=== PATIENT | female | born 2000 | race Hispanic/Latino ===

== ENCOUNTER 2018-09-09 14:00 | Outpatient (CLI) | payer BC | END 2018-09-09 14:20 | disposition home or self-care (01) | LOC: LAB 14:00 → TRG 14:05 → LAB 14:05 → TRG 14:10 → LAB 14:20 | PROVIDERS: ATTEND Obstetrics & Gynecology | DX: O26.891 Other specified pregnancy related conditions, first trimester (principal); Z3A.08 8 weeks gestation of pregnancy; Z67.21 Type B blood, Rh negative | CPT/HCPCS: 86850; 86900; 86901; 96372; J2790 ==

== ENCOUNTER 2018-09-12 11:32 | Emergency (ER) | payer BC ==
[2018-09-12] MEDS ORDERED: ZOFRAN IM ONE (11:50)
--- NOTE | 2018-09-12 11:50 | Emergency Department Report ---
ED Female HPI - General Chief complaint: Vaginal Bleeding Stated complaint: 6WKS /HEAVY BLEEDING Time Seen by Provider: 09/12/18 11:43 Source: patient, RN notes reviewed, old records reviewed Mode of arrival: Ambulatory Limitations: No Limitations - History of Present Illness Initial comments: This is a 17-year-old female. This patient is not known to this provider previously. Patient is 1, para 0. Believes last menstrual period at the end of June. Following with lj by[facility] [employer] Patient reports onset of nontraumatic vaginal bleeding last week. She's had an extensive workup as an outpatient, where she reports that she is Rh-, has already received RhoGAM this week, had a quantitative hCG of approximately 4000 earlier on this week, and also had an outpatient ultrasound, which demonstrated a "sac." Her bleeding temporarily decreased, and over the past 36 hours has increased. It is associated with bilateral lower quadrant pain and lower back pain. The pain is sharp and aching and cramping, increases with palpation and decreases with rest. No irritative or obstructive urinary symptoms. Patient had a pelvic exam done earlier on this week, and indicates that "swabs were done." She came to the ER today because a family member works in this hospital in the NICU, and suggested that she may be having a miscarriage, and the patient is concerned that she may require a dilatation and curettage. Complaint: vaginal bleeding, vaginal discharge -: Gradual, days(s) Location: suprapubic, LLQ, RLQ Radiation: other (back) Severity: moderate Quality: cramping Consistency: intermittent Improves with: medication Worsens with: movement Are you Now?: Yes Associated Symptoms: vaginal bleeding, abdominal pain. denies: vaginal disc harge, nausea/vomiting, fever/chills, headaches, dysuria, hematuria, rash, seizure, shortness of breath, syncope, weakness - Related Data Previous Rx's Medication Instructions Recorded Last Taken Type Acetaminophen [Non-Aspirin Extra 500 mg PO Q6HR PRN #30 tablet 09/12/18 Unknown Rx Strength] Ibuprofen [Motrin] 600 mg PO Q8H PRN #30 tablet 09/12/18 Unknown Rx traMADol [Ultram 50 MG tab] 50 mg PO Q6HR PRN #9 tablet 09/12/18 Unknown Rx Allergies Allergy/AdvReac Type Severity Reaction Status Date / Time No Known Allergies Allergy Verified 07/19/15 01:39 ED Review of Systems ROS: Stated complaint: 6WKS /HEAVY BLEEDING Other details as noted in HPI Constitutional: denies: fever Eyes: denies: eye pain ENT: denies: epistaxis Respiratory: denies: cough Cardiovascular: denies: chest pain Gastrointestinal: abdominal pain. denies: vomiting Genitourinary: abnormal menses Musculoskeletal: back pain Skin: denies: lesions Neurological: weakness Psychiatric: anxiety ED Past Medical Hx - Past Medical History Previous Medical History?: Yes Hx Hypertension: No Hx Diabetes: No Hx Deep Vein Thrombosis: No Hx Renal Disease: No Hx Sickle Cell Disease: No Hx Seizures: No Hx Asthma: No Hx HIV: No Additional medical history: SYNCOPE - Surgical History Past Surgical History?: Yes Additional Surgical History: Sandoval tooth - Social History Smoking Status: Current Every Day Smoker Substance Use Type: Marijuana - Medications Home Medications: Home Medications Medication Instructions Recorded Confirmed Last Taken Type Acetaminophen [Non-Aspirin Extra 500 mg PO Q6HR PRN #30 tablet 09/12/18 Unknown Rx Strength] Ibuprofen [Motrin] 600 mg PO Q8H PRN #30 tablet 09/12/18 Unknown Rx traMADol [Ultram 50 MG tab] 50 mg PO Q6HR PRN #9 tablet 09/12/18 Unknown Rx ED Physical Exam - General Limitations: No Limitations General appearance: alert, anxious - Head Head exam: Present: atraumatic, normocephalic - Eye Eye exam: Present: normal appearance, EOMI. Absent: nystagmus - ENT ENT exam: Present: normal exam, normal orophraynx, mucous membranes moist, normal external ear exam - Neck Neck exam: Present: normal inspection, full ROM. Absent: tenderness, meningismus - Respiratory Respiratory exam: Present: normal lung sounds bilaterally. Absent: respiratory distress - Cardiovascular Cardiovascular Exam: Present: regular rate, normal rhythm, normal heart sounds. Absent: bradycardia, tachycardia, irregular rhythm, systolic murmur, diastolic murmur, rubs, gallop - GI/Abdominal GI/Abdominal exam: Present: soft, tenderness, other (there is mild lower abdominal tenderness. There is no rebound, guarding or peritoneal signs. There is no right upper quadrant tenderness. there is negative Rovsing sign.). Absent: distended, guarding, rebound, rigid, pulsatile mass - Extremities Exam Extremities exam: Present: normal inspection, full ROM, other (2+ pulses noted in the bilateral upper, lower extremities. Compartments soft. No long bony tenderness. The pelvis is stable.). Absent: pedal edema, joint swelling, calf tenderness - Back Exam Back exam: Present: normal inspection, full ROM. Absent: tenderness, CVA tenderness (R), CVA tenderness (L), paraspinal tenderness, vertebral tenderness - Neurological Exam Neurological exam: Present: alert, other (Extraocular movements intact. Tongue midline. No facial droop. Facial sensation intact to light touch in the V1, V2, V3 distribution bilaterally. 5 and 5 strength in 4 extremities.. Sensation is intact to light touch in 4 extremities.). Absent: motor sensory deficit - Psychiatric Psychiatric exam: Present: normal affect, normal mood - Skin Skin exam: Present: warm, dry, intact, normal color. Absent: rash ED Course Vital Signs 09/12/18 09/12/18 11:35 14:08 Temperature 98.3 F 98.3 F Pulse Rate 79 66 Respiratory 20 16 Rate Blood Pressure 110/65 Blood Pressure 98/58 [Left] O2 Sat by Pulse 96 100 Oximetry - Reevaluation(s) Reevaluation #1: 09/12/18 13:55 Differential diagnosis, including but not limited to: Miscarriage, retained products of conception Assessment and plan: 17-year-old female with reported positive test, no positive hCG, Rh-, reportedly has received RhoGAM, likely with natural history of miscarriage. She is improved after morphine. Laboratory studies are reviewed and appreciated. Obstetrics ultrasound is pending at this time. Reevaluation #2: 09/12/18 17:04 Ultrasound does not demonstrate discrete intrauterine . The patient states that she has follow-up on Friday with [facility]. Repeat type and screen shows presence of antibodies, and appropriate response to RhoGAM therapy. Discussed with our clarifier operator helper on-call, Dr. Hubbard, who indicates that patient does not require D&C, or additional RhoGAM. Patient is counseled to avoid heavy lifting and to avoid sex, and to follow-up on Friday. She states that she is reliable to follow-up. Return precautions are reviewed. ED Medical Decision Making - Lab Data Result diagrams: 09/12/18 12:00 Vital Signs 09/12/18 11:35 Temperature 98.3 F Pulse Rate 79 Respiratory 20 Rate Blood Pressure 110/65 O2 Sat by Pulse 96 Oximetry Lab Results 09/12/18 09/12/18 Range/Units 12:00 12:00 WBC 7.2 (4.5-11.0) K/mm3 RBC 4.79 (3.65-5.03) M/mm3 Hgb 12.0 (10.1-14.3) gm/dl Hct 37.4 (30.3-42.9) % MCV 78 L (79-97) fl MCH 25 L (28-32) pg MCHC 32 (30-34) % RDW 20.7 H (13.2-15.2) % Plt Count 227 (140-440) K/mm3 Lymph % (Auto) 17.2 (13.4-35.0) % Stephens % (Auto) 7.5 H (0.0-7.3) % Eos % (Auto) 2.9 (0.0-4.3) % Baso % (Auto) 0.7 (0.0-1.8) % Lymph # 1.2 (1.2-5.4) K/mm3 Stephens # 0.5 (0.0-0.8) K/mm3 Eos # 0.2 (0.0-0.4) K/mm3 Baso # 0.1 (0.0-0.1) K/mm3 Seg Neutrophils % 71.7 H (40.0-70.0) % Seg Neutrophils # 5.2 (1.8-7.7) K/mm3 HCG, Quant 3316 H (0-4) mIU/mL - Radiology Data Radiology results: pending, report reviewed, image reviewed Print Report Referring Physician: GRAHAM RDZ Patient Name: SPENCER LAZO Date of : 2000 Sex: Female Report Date: 2018-09-12 Report Status: Finalized Findings [facility] [address] [place] [address] Ultrasound Report Signed Patient: SPENCER LAZO MR#: [id number] : 2000 Acct:[id number] Age/Sex: 17 / F ADM Date: 09/12/18 Loc: ED Attending Dr: Ordering Physician: GRAHAM RDZ MD Date of Service: 09/12/18 Procedure(s): US OB <= 14 weeks fetus Accession Number(s): [id number] cc: GRAHAM RDZ MD ULTRASOUND OBSTETRIC INDICATION / CLINICAL INFORMATION: with heavy vag bleed. TECHNIQUE: Transabdominal. COMPARISON: None available. FINDINGS: Patient refused transvaginal probe secondary to severe pain GESTATIONAL SAC: Not visualized YOLK SAC: Not visualized EMBRYO/FETUS: Not visualized ADNEXA: Right ovary appears within normal limits without cyst or mass measuring 3.4 x 1.8 x 2.1 cm Left ovary measures 2.6 x 1.8 x 1.7 cm and contains a small 1 cm cyst FREE FLUID: None. ADDITIONAL FINDINGS: Uterus measures 8.4 x 4.3 x 6.4 cm. Endometrial stripe is thickened measuring 1.8 cm IMPRESSION: 1. No visualized IUP with thickened endometrial stripe likely secondary to recent miscarriage versus less likely nonvisualized ectopic or early . Follow-up ultrasound and beta hCG is recommended. Signer Name: Kenrick Crenshaw MD Signed: 09/12/2018 3:27 PM Workstation Name: [id number] Transcribed By: TL Dictated By: Kenrick Crenshaw MD Electronically Authenticated By: Kenrick Crenshaw MD Signed Date/Time: 09/12/18 0001 Critical care attestation.: If time is entered above; I have spent that time in minutes in the direct care of this critically ill patient, excluding procedure time. ED Disposition Clinical Impression: Miscarriage Disposition: DC-01 TO HOME OR SELFCARE Is pt being admited?: No Does the pt Need Aspirin: No Condition: Stable Instructions: Spontaneous Miscarriage (ED) Additional Instructions: Rest, avoid heavy lifting, and avoid strenuous physical activities. Do not have sex or sexual activity. Follow-up in 2 days for repeat physical examination, and quantitative hCG. Take the pain medication as needed/directed. Return to the emergency room right away with new, worsening or different symptoms, or symptoms not present on the initial emergency room evaluation. The patient may return to this emergency room for repeat evaluation, follow-up with an [employer] doctor, or follow-up with her private [employer] doctor. Referrals: LJ NOBLE MD [Primary Care Provider] - 3-5 Days STEVEN JEFFERS MD [Referring] - 3-5 Days
[2018-09-12] MEDS ORDERED: MORPHINE IM ONE (12:00)
[2018-09-12 12:28] LABS: Basophils # (Auto) 0.1 K/mm3 (0.0-0.1); Basophils % (Auto) 0.7 % (0.0-1.8); Eosinophils # (Auto) 0.2 K/mm3 (0.0-0.4); Eosinophils % (Auto) 2.9 % (0.0-4.3); Hematocrit 37.4 % (30.3-42.9); Lymphocytes # (Auto) 1.2 K/mm3 (1.2-5.4); Lymphocytes % (Auto) 17.2 % (13.4-35.0); Mean Corpuscular HGB Conc 32 % (30-34); Mean Corpuscular Volume 78 fl (79-97); Monocytes # (Auto) 0.5 K/mm3 (0.0-0.8); Monocytes % (Auto) 7.5 % (0.0-7.3); Platelet Count 227 K/mm3 (140-440); Red Blood Count 4.79 M/mm3 (3.65-5.03)
[2018-09-12 12:34] LABS: Red Cell Distribution Width 20.7 % (13.2-15.2)
[2018-09-12] MEDS ORDERED: ZOFRAN ODT ONE (14:06)
[2018-09-12 14:09] VITALS: BP 98/58
[2018-09-12] MEDS ORDERED: ZOFRAN ODT PO ONE (14:10)
--- NOTE | 2018-09-12 15:31 | Ultrasound Report ---
ULTRASOUND OBSTETRIC INDICATION / CLINICAL INFORMATION: with heavy vag bleed. TECHNIQUE: Transabdominal. COMPARISON: None available. FINDINGS: Patient refused transvaginal probe secondary to severe pain GESTATIONAL SAC: Not visualized YOLK SAC: Not visualized EMBRYO/FETUS: Not visualized ADNEXA: Right ovary appears within normal limits without cyst or mass measuring 3.4 x 1.8 x 2.1 cm Left ovary measures 2.6 x 1.8 x 1.7 cm and contains a small 1 cm cyst FREE FLUID: None. ADDITIONAL FINDINGS: Uterus measures 8.4 x 4.3 x 6.4 cm. Endometrial stripe is thickened measuring 1. 8 cm IMPRESSION: 1. No visualized IUP with thickened endometrial stripe likely secondary to recent miscarriage versus less likely nonvisualized ectopic or early . Follow-up ultrasound and beta hCG is recommende d. Signer Name: Kenrick Crenshaw MD Signed: 09/12/2018 3:27 PM Workstation Name: [id number]
[2018-09-12] MEDS ORDERED: TORADOL IM ONE (16:34)
== END 2018-09-12 17:15 | disposition home or self-care (01) ==
LOC: ED 11:32
DX: O03.9 Complete or unspecified spontaneous abortion without complication (principal); F17.200 Nicotine dependence, unspecified, uncomplicated; F12.10 Cannabis abuse, uncomplicated; Z3A.01 Less than 8 weeks gestation of pregnancy
CPT/HCPCS: 36415; 76801; 84702; 85025; 86850; 86870; 86900; 86901; 96372; 99284; J1885; J2270; J2405; Q0162